=== PATIENT | male | born 1950 | race Two or more races ===

== ENCOUNTER 2018-07-12 06:14 | Emergency (ER) | payer SELFPAY ==
[~2018-07-12] VITALS: Ht 177.8 cm; Wt 90.7 kg
[2018-07-12 06:15] VITALS: BP 187/100
--- NOTE | 2018-07-12 06:15 | NUR ---
ED Nurse Note: Pt was BIBA from street, c/o Possible ETOH. Pt is awake, drowsy with deep sleeping at this time. Bp 187/100. Both Legs were edema 4+. Dr. Pascal at bed side, waitng for orders.
--- NOTE | 2018-07-12 06:49 | NUR ---
ED Nurse Note: Pt was moved to Bed 7# for privacy .
[2018-07-12 06:59] VITALS: BP 142/73
--- NOTE | 2018-07-12 08:04 | NUR ---
ED Nurse Note: Blood has been collected and sent to lab. Pt went down for CT.
--- NOTE | 2018-07-12 08:18 | NUR ---
ED Nurse Note: Pt came back from CT.
[2018-07-12 08:22] LABS: HEMATOCRIT 46.2 % (42.0-52.0); HEMOGLOBIN 15.5 G/DL (14.2-18.0); MEAN CORPUSCULAR VOLUME 94 FL (80-99); PLATELET COUNT 42 K/UL (150-450); RED BLOOD COUNT 4.93 M/UL (4.70-6.10); RED CELL DISTRIBUTION WIDTH 13.7 % (11.6-14.8); WHITE BLOOD COUNT 8.2 K/UL (4.8-10.8)
--- NOTE | 2018-07-12 08:34 | Diagnostic Imaging Report ---
Indications: Altered mental status Technique: Spiral acquisitions obtained through the brain. Angled axial and coronal 5 x 5 mm slices were reconstructed. Total dose length product 1460.37 mGycm. CTDI vol(s) 70.38 mGy. Dose reduction achieved using automated exposure control Comparison: None. Findings: There is age-related enlargement of the ventricles and extra-axial CSF spaces. Old lacunar infarcts are seen within the bilateral basal ganglia. There is periventricular deep white matter low-attenuation, consistent with chronic ischemic change noted. Visualized orbits are unremarkable. There is ethmoid sinus disease. The mastoids are clear. Impression: Negative for acute intracranial bleed or mass effect Old bilateral basal ganglia lacunar infarcts Other chronic and age-related changes, as described The CT scanner at [facility] is accredited by the [employer] and the scans are performed using protocols designed to limit radiation exposure to as low as reasonably achievable to attain images of sufficient resolution adequate for diagnostic evaluation.
[2018-07-12 08:43] VITALS: BP 144/98
[2018-07-12 08:51] LABS: ANION GAP 11 mmol/L (5-15); BLOOD UREA NITROGEN 17 mg/dL (7-18); CARBON DIOXIDE 21 MMOL/L (21-32); CHLORIDE 103 MMOL/L (98-107); CREATININE 1.1 MG/DL (0.55-1.30); POTASSIUM 3.5 MMOL/L (3.5-5.1); SODIUM 135 MMOL/L (136-145)
[2018-07-12 10:35] VITALS: BP 140/104
--- NOTE | 2018-07-12 12:11 | Emergency Room Report ---
History of Present Illness General Chief Complaint: Alcohol Intoxication Source: Patient Present Illness HPI Patient presents with complaints of general weakness Paramedics had reported alcohol intoxication however patient initially was nonverbal with me and did not provide that history After further rest patient has awakened Denies any alcohol ingestion recently Denies any headache patient reports that he was essentially very cold and weak However is starting to feel much improved denies any vomiting or diarrhea denies any fevers patient reports that he would like to take the bus home Allergies: Coded Allergies: No Known Allergies (Unverified , 07/12/18) Patient History Past Medical History: see triage record Pertinent Family History: none Reviewed Nursing Documentation: PMH: Agreed; PSxH: Agreed Nursing Documentation-PMH Hx Hypertension: Yes Review of Systems All Other Systems: negative except mentioned in HPI Physical Exam Vital Signs Date Time Temp Pulse Resp B/P (MAP) Pulse Ox O2 Delivery O2 Flow Rate FiO2 07/12/18 06:10 99.3 80 16 174/100 98 07/12/18 06:15 Room Air Sp02 EP Interpretation: reviewed, normal General Appearance: no apparent distress Head: normocephalic, atraumatic Eyes: bilateral eye PERRL, bilateral eye EOMI ENT: normal pharynx, no angioedema Neck: supple Respiratory: lungs clear, no retraction, no accessory muscle use Gastrointestinal: non tender, soft Musculoskeletal: normal inspection Neurologic: other - Initially the patient presented somewhat difficult to arouse however on repeat evaluation patient is now awake GCS 15 oriented Skin: normal color, no rash, other - Dependent edema bilateral lower extremity Lymphatic: no adenopathy Medical Decision Making Diagnostic Impression: Primary Impression: weakness ER Course Initially patient was brought in by paramedics found sleeping in front of a [employer] intoxication however patient does not have any odor of alcohol and the alcohol level on the exam was negative Patient continued to rest CT imaging was negative On repeat evaluation patient is awake and reports that he was extremely tired and it was extremely cold last night and he reports that he feels much better Requesting Bus pass for home Patient was able to feed his ambulatory and medically stabilized for further outpatient care Labs Test 07/12/18 08:00 White Blood Count 8.2 K/UL (4.8-10.8) Red Blood Count 4.93 M/UL (4.70-6.10) Hemoglobin 15.5 G/DL (14.2-18.0) Hematocrit 46.2 % (42.0-52.0) Mean Corpuscular Volume 94 FL (80-99) Mean Corpuscular Hemoglobin 31.5 PG (27.0-31.0) Mean Corpuscular Hemoglobin Concent 33.6 G/DL (32.0-36.0) Red Cell Distribution Width 13.7 % (11.6-14.8) Platelet Count 42 K/UL (150-450) Mean Platelet Volume 10.2 FL (6.5-10.1) Neutrophils (%) (Auto) % (45.0-75.0) Lymphocytes (%) (Auto) % (20.0-45.0) Monocytes (%) (Auto) % (1.0-10.0) Eosinophils (%) (Auto) % (0.0-3.0) Basophils (%) (Auto) % (0.0-2.0) Differential Total Cells Counted 100 Neutrophils % (Manual) 83 % (45-75) Lymphocytes % (Manual) 3 % (20-45) Monocytes % (Manual) 6 % (1-10) Eosinophils % (Manual) 0 % (0-3) Basophils % (Manual) 0 % (0-2) Band Neutrophils 8 % (0-8) Platelet Estimate Decreased Platelet Morphology Normal Red Blood Cell Morphology Normal Sodium Level 135 MMOL/L (136-145) Potassium Level 3.5 MMOL/L (3.5-5.1) Chloride Level 103 MMOL/L (98-107) Carbon Dioxide Level 21 MMOL/L (21-32) Anion Gap 11 mmol/L (5-15) Blood Urea Nitrogen 17 mg/dL (7-18) Creatinine 1.1 MG/DL (0.55-1.30) Estimat Glomerular Filtration Rate > 60 mL/min (>60) Glucose Level 122 MG/DL (74-106) Calcium Level 8.0 MG/DL (8.5-10.1) Serum Alcohol < 3 mg/dL CT/MRI/US Diagnostic Results CT/MRI/US Diagnostic Results : Impression ct head no acute disease Last Vital Signs Date Time Temp Pulse Resp B/P (MAP) Pulse Ox O2 Delivery O2 Flow Rate FiO2 07/12/18 10:35 98.4 79 29 140/104 100 Room Air Status: improved Disposition: HOME, SELF-CARE Condition: Improved Scripts Unable to Obtain Active Prescriptions or Reported Meds Referrals: NOT CHOSEN IPA/MD,REFERRING (PCP) Patient Instructions: Weakness, [id number] Additional Instructions: Patient is provided with the discharge instructions notified to follow up with primary doctor in the next 2-3 days otherwise return to the er with any worsening symptoms. Please note that this report is being documented using DRAGON technology. This can lead to erroneous entry secondary to incorrect interpretation by the dictating instrument. Liz Pascal DO Jul 12, 2018 12:11
[2018-07-12 13:06] VITALS: BP 130/80
--- NOTE | 2018-07-12 13:12 | NUR ---
ER DISCHARGE NOTE: Patient is cleared to be discharged per ERMD, pt is aox4, on room air, with stable vital signs. pt was given dc and prescription instructions, pt was able to verbalize understanding, pt id band removed without complications. pt is able to ambulate with steady gait. pt took all belongings. Pt given sandwich, juice, and cane. Pt denied placement but given a list of [facility] and free clinics.
== END 2018-07-12 12:00 | disposition home or self-care (01) ==
LOC: EDBD 06:14 → EMR 07:15
DX: R53.1 Weakness (principal); I10 Essential (primary) hypertension
CPT/HCPCS: 36415; 70450; 80048; 85007; 85025; 99284; G0480; 80329